=== PATIENT | male | born 1975 | race Caucasian/White ===

== ENCOUNTER 2024-03-02 10:43 | Outpatient (CLI) | payer MEDICARE, SELFPAY ==
--- NOTE | 2024-03-02 11:00 | US_ITS ---
Patient: ЮЛИЯ NAIR Facility:?[facility] Patient ID:?[id number] Site Patient ID:?[id number]. Site :?1975 Study:?US-Abdomen RENAL DOPPLER-03/02/2024 11:54:19 AM Ordering Physician:RUBEN LACEY M.D. Final Report: INDICATION: Resistant hypertension TECHNIQUE: Wayne scale, color and spectral doppler evaluation of the renal arteries. COMPARISON: None available FINDINGS: BILATERAL RENAL ARTERY DUPLEX ULTRASOUND ABDOMINAL AORTA: Peak systolic velocity = 101 cm/s. No aortic aneurysm. RIGHT KIDNEY: 12.2 cm in length. There is no hydronephrosis. Peak systolic velocity = 145 cm/second Renal artery to aortic peak systolic velocity ratio = 1.4 Resistive indices: 0.6 Renal vein = patent LEFT KIDNEY: 11.2 cm in length. There is no hydronephrosis. Peak systolic velocity = 138 cm/second Renal artery to aortic peak systolic velocity ratio = 1.4 Resistive indices: 0.6 Renal vein = patent IMPRESSION: No evidence of significant renal artery stenosis. Dictated by Cliff Doan MD @ 03/03/2024 12:27:43 PM Signed by:?Cliff Doan MD @03/03/2024 12:27:43 PM (Electronic Signature)
== END 2024-03-02 10:44 | disposition home or self-care (01) ==
LOC: US 10:48
PROVIDERS: PCP Family Medicine; Visit Provider Internal Medicine Nephrology
DX: I1A.0 Resistant hypertension (principal)
CPT/HCPCS: 76775; 93975

== ENCOUNTER 2024-11-04 11:17 | Emergency (ER) | payer MEDICARE, SELFPAY ==
--- OUTSIDE RECORDS SUMMARY | 2024-11-04 11:19 | XMS_ITS | Clinical Summary ---
Author Organization [employer] Address [place], [place] [address] Care Team Providers Care Injection Molding Machine Offbearer Name Role Phone Jeanne Brennan DO Primary Care Provider [phone] Jaleesa Wilder MD Unavailable [phone] Allergies Active Allergy Reactions Criticality Noted Date Comments Adhesive Intolerance-Can't Take 05/29/2019 Should only be using 3M silicone tape due to skin condition. Medications cholecalciferol (VITAMIN D) 1,000 unit tablet Take 1,000 Units by mouth once daily. Active naproxen (ALEVE) 220 mg tablet Take 1,100 mg by mouth every 8 hours if needed for Pain. Active ALPRAZolam (XANAX) 1 mg tablet Take 1 mg by mouth. 07/05/20 22 Active busPIRone (BUSPAR) 30 mg tablet Take 30 mg by mouth two times daily. 03/02/20 23 Active Vyvanse 40 mg capsule Take 40 mg by mouth once daily. 02/13/20 23 Active Vyvanse 10 mg capsule Take 10 mg by mouth once daily. Daily at 2 pm 02/09/20 23 Active omeprazole (PRILOSEC) 20 mg Delayed-Release capsuleIndications :Gastric reflux Take 1 Capsule (20 mg) by mouth once daily before a meal. 90 Capsule 2 02/26/20 24 Active hydrOXYzine HCL (ATARAX) 10 mg tablet Take 10-20 mg by mouth at bedtime. 08/05/20 24 Active lisinopriL (PRINIVIL; ZESTRIL) 20 mg tabletIndications: Resistant hypertension Take 1 Tablet (20 mg) by mouth two times daily. 180 Tablet 3 08/26/20 24 Active carvediloL (COREG) 25 mg tabletIndications: Resistant hypertension Take 1 Tablet (25 mg) by mouth two times daily with meals. 90 Tablet 3 08/26/20 24 Active triamterene-hydroc hlorothiazide, 37.5-25 mg, (DYAZIDE) 37.5-25 mg capsuleIndications :Resistant hypertension Take 1 Capsule by mouth once daily in the morning. 90 Capsule 3 08/26/20 24 Active aspirin chewable 81 mg chewable tabletIndications: Resistant hypertension Chew 1 Tablet (81 mg) by mouth once daily with a meal. 90 Tablet 3 08/26/20 24 Active albuterol HFA (PRO-AIR; VENTOLIN; PROVENTIL) 90 mcg/actuation inhalerIndications :SOB (shortness of breath) Inhale 1-2 Puffs by mouth every 4 hours if needed for Shortness Of Breath. 8.5 g 08/26/20 24 Active rosuvastatin (CRESTOR) 5 mg tabletIndications: Mixed hyperlipidemia Take 1 Tablet (5 mg) by mouth at bedtime. 90 Tablet 3 08/28/20 24 Active HYDROmorphone (Dilaudid) 2 mg tabletIndications: Complex regional pain syndrome type 1 of both upper extremities May take one tablet for severe pain bid prn 10 Tablet 09/07/20 24 Active cloNIDine HCL (CATAPRES) 0.1 mg tabletIndications: HTN (hypertension) Take 1 Tablet (0.1 mg) by mouth two times daily. 180 Tablet 3 09/07/20 24 Active rOPINIRole (REQUIP) 0.5 mg tabletIndications: RLS (restless legs syndrome) One po qhs x 1 week then if needed 2 po qhs 180 Tablet 3 09/07/20 24 Active onabotulinumtoxinA (Botox) 100 unit solrIndications:No nintractable headache, unspecified chronicity pattern, unspecified headache type Inject 200 units intramuscular one time for 1 dose. 2 Each 10/23/19 25 025 Active Problems Problem Noted Date Diagnosed Date Controlled substance agreement signed 12/17/2023 Overview (12/31/2023): [facility] Seema Alejandra .................... 12/31/2023 9:45 AM Controlled substance agreement signed 08/17/2021 Overview (08/17/2021): Signed at [facility] 07/25/2021 Rahel Williamson .................... 08/17/2021 9:41 AM Snoring 10/26/2015 Overview (10/26/2015): POLYSOMNOGRAM PSG type: full night baseline Date of study:10/06/2015; weight @ time of study: n/a Facility: [facility] Total Sleep Time: 301.5 Sleep Efficiency: 66.3% AHI: 0.2 RDI: 4.8 Myron O2%: 89 MD interp: pending CRPS 1, lower extremity 04/11/2015 CRPS (complex regional pain syndrome), upper jerome b 02/22/2015 Chronic pain syndrome 02/22/2015 BPH (benign prostatic hyperplasia) 02/01/2015 HTN (hypertension) 01/04/2015 Posttraumatic stress disorder 08/25/2009 Bipolar disorder, unspecified 08/03/2009 Resolved Problems Problem Noted Date Diagnosed Date Resolved Date Controlled substance agreement signed 07/05/2020 02/14/2022 Overview (07/05/2020): Dorota Hanson CMA 07/05/2020 11:26 AM Pyoderma gangrenosum 05/27/2019 019 Hypokalemia 05/26/2019 05/10/2021 Syncope and collapse 12/11/2014 016 Chest pain 12/11/2014 11/23/2015 Elevated BP 12/11/2014 12/14/2014 CRPS (complex regional pain syndrome), upper limb 07/05/2011 11/23/2015 Impingement syndrome of shoulder 08/10/2010 11/23/2015 Overview (08/10/2010): Right. Post traumatic work injury 07-02-2010 Weakness 12/14/2009 11/23/2015 Elevated blood pressure read ing without diagnosis of hypertension 12/04/2009 01/04/2015 Unspecified constipation 02/07/2008 Abdominal pain, right lower quadrant 02/03/2008 08/03/2009 Nausea with vomiting 02/03/2008 009 Intention tremor 11/23/2015 Dysphagia 02/28/2010 Encounters Date Type Department Care Team Description 11/04/2024 Nurse Triage [facility] [address] [place] [address] Jeanne Brennan DO Skin Problem 10/26/2024 11:15 AM CONFIGURATION MANAGEMENT ADMINISTRATOR - 10/26/2024 11:59 PM CONFIGURATION MANAGEMENT ADMINISTRATOR Hospital Encounter [facility] [address] [place] [address] Jaleesa Wilder MD 10/26/2024 11:15 AM CONFIGURATION MANAGEMENT ADMINISTRATOR Procedure Only [facility] [address] [place] [address] Jaleesa Wilder MD Procedure (Botox) 10/26/2024 Travel 09/07/2024 3:50 PM CONFIGURATION MANAGEMENT ADMINISTRATOR Office Visit [facility] [address] [place] [address] Jaleesa Wilder MD Follow Up 09/06/2024 Travel 08/26/2024 1:20 PM CONFIGURATION MANAGEMENT ADMINISTRATOR Office Visit [facility] [address] [place] [address] Jeanne Brennan DO Medicare ANNUAL (subsequent) Visit (49 year old male); Blood Pressure 08/26/2024 Refill [facility] [address] [place] [address] Jeanne Brennan DO Refill Request (Carvedilol) 08/26/2024 Travel 08/21/2024 Travel from Last 3 Months Immunizations Name Administration Dates Next Due DTP 08/18/1982, 9,1977,1977 ,1977 INFLUENZA, IIV3 PF (AGE >= 6 MO) 08/26/2024 Influenza, IIV3 (Age 6-35 mos) 07/08/2009 Influenza, IIV3 (Age >=3 years) 08/07/2010,02/02,02/03/2008 Influenza, IIV4 10/01/2023, 2,07/26/2021,06/29/2020 ,07/01/2019,07/23/2018 MMR 07/31/1978 Oral Polio Vaccine 08/18/1982, 9,1977,1977 ,1977 Td (Age >=7 Years) 12/11/2006,11/08/2000 Tdap 07/01/2019,07/08/2009 Family History Medical History Relation Name Comments Cancer-prostate Father dx'd age 45 Hypertension Father Stroke Maternal Grandfather Cancer-prostate Maternal Uncle 1 Heart Disease Maternal Uncle 2 dec in ?40 s Hypertension Mother Other Other 1 No family histo ry of colon cancer, ulcerative colitis, crohn's disease Heart Disease Other 2 maternal cousi ns dec in ?40s Heart Disease Paternal Grandfather dec du e to [place] age 72 Cancer-prostate Paternal Uncle some diagn osed in 30-40s Relation Name Status Comments Father Maternal Grandfather Maternal Uncle 1 Maternal Uncle 2 Mother Other 1 Other 2 Paternal Grandfather Paternal Grandmother Paternal Uncle Social History Tobacco Use Types Packs/Day Years Used Date Smoking Tobacco: Some Days Cigarettes 0.5 32 Started: 1992 Smokeless Tobacco: Never Tobacco Cessation:Ready to Q uit: Not Asked; Counseling Given: Not Answered Alcohol Use Standard Drinks/Week Comments Not Currently 0 (1 standard drink = 0.6 oz pur e alcohol) rarely PHQ-2 Answer Date Recorded PHQ-2 TOTAL SCORE 0 08/26/2024 Social Connections Answer Date Recorded Do you often feel lonely or isolated from those around you? 0 09/27/2023 Financial Resource Strain Answer Date R ecorded Difficulty of Paying Living Expenses 3 09/27/2023 Difficulty of Paying Living Expenses Not on file 09/27/2023 Food Insecurity Answer Date Recorded Do you worry your food will run out before you are able to buy more? 1 09/27/2023 Transportation Needs Answer Date Record ed Does lack of transportation keep you from medica l appointments? 1 09/27/2023 Does lack of transportation keep you from work, meetings or getting things that you need? 1 09/27/2023 Housing Stability Answer Date Recorded What is your housing situation today? 1 09/27/2023 Sex and Gender Information Value Date Recorded Sex Assigned at Not on file Legal Sex Male 7:00 AM CONFIGURATION MANAGEMENT ADMINISTRATOR Gender Identity Not on file Sexual Orientation Not on file Obstetrics History Last Filed Vital Signs Vital Sign Reading Time Taken Comments Blood Pressure 201/109 10/26/2024 12:10 PM CONFIGURATION MANAGEMENT ADMINISTRATOR Pulse 121 10/26/2024 12:10 PM CONFIGURATION MANAGEMENT ADMINISTRATOR Temperature 36.7 C (98 F) 10/26/2024 11:41 AM CONFIGURATION MANAGEMENT ADMINISTRATOR Respiratory Rate 16 10/26/2024 11:41 AM CONFIGURATION MANAGEMENT ADMINISTRATOR Oxygen Saturation 95% 10/26/2024 11:41 AM CONFIGURATION MANAGEMENT ADMINISTRATOR Inhaled Oxygen Concentration - - Weight 99.9 kg (220 lb 4.8 oz) 08/26/2024 1:34 P M CONFIGURATION MANAGEMENT ADMINISTRATOR Height 182.3 cm (5' 11.77) 08/26/2024 1:[address] Body Mass Index 30.07 08/26/2024 1:34 PM CONFIGURATION MANAGEMENT ADMINISTRATOR Plan of Treatment Health Maintenance Due Date Last Done Comments HIV for age 15-65 1992 Pneumococcal series for age 6-49 (1 of 2 - PCV) 1996 COVID-19 vaccine series ( season) 2024 BMI (ht and wt on same day) for age 18+ 08/26/2025 08/26/2024, 01/15/2024, 07/25/2022, Additional history exists Depression screening for age 12+ 08/26/2025 08/26/2024, 08/26/2024, 01/15/2024, Additional history exists Colonoscopy through age 75 01/30/202701/30, 01/30/2017, 02/19/2008 Tetanus booster 07/01/2029 07/01/2019, 10/0 10/2008, 07/08/2009, Additional history exists Lipids for age 45-75 08/26/2029 08/26/2024, 07/25/2022, 06/29/2020, Additional history exists Tdap Completed 07/01/2019, 07/08/2009 Hepatitis C screening for ag e 18-79 Completed 07/25/2022 Influenza for age 9-49 Completed , 10/01/2023, 07/25/2022, Additional history exists Procedures Procedure Name Priority Date/Time Associated Diagnosis Comments CHEMODENERVATION Routine 10/26/2024 11:3 4 AM CONFIGURATION MANAGEMENT ADMINISTRATOR Chronic migraine with aura, intractable, with status migrainosus HEMOGLOBIN Routine 08/26/2024 2:17 PM CONFIGURATION MANAGEMENT ADMINISTRATOR Rectal bleeding BASIC METABOLIC PANEL Routine 08/26/2024 2:17 PM CONFIGURATION MANAGEMENT ADMINISTRATOR Chronic kidney disease, stage II (mild) LIPID PANEL W REFLEX MEASURED LDL Routine 08/26/2024 2:17 PM CONFIGURATION MANAGEMENT ADMINISTRATOR Screening cholesterol level ANTI HCV Routine 07/25/2022 11:54 AM CDT Need for hepatitis C screening test COLONOSCOPY 01/30/2017 10:32 AM CDT from Last 3 Months or Most Recently Relevant to Health Maintenance Results * (ABNORMAL) LIPID PANEL W REFLEX MEASURED LDL (08/26/2024 2:17 PM CONFIGURATION MANAGEMENT ADMINISTRATOR) Pathologist [facility] CHOLESTEROL, TOTAL 214(H) <200 mg/dL [facility] HDL CHOLESTEROL 44 > OR = 40 mg/dL [facility] TRIGLYCERIDES 221(H) <150 mg/dL [facility] Comment: If a non-fasting specimen was collected, consider repeat triglyceride testing on a fasting specimen if clinically indicated. Cherelle et al. J. of Clin. Lipidol. 2015;9:129-169. LDL-CHOLESTEROL 134(H) mg/dL (calc) [facility] Comment: Reference range: <100 Desirable range <100 mg/dL for primary prevention; <70 mg/dL for patients with CHD or diabetic patients with > or = 2 CHD risk factors. LDL-C is now calculated using the Henry calculation, which is a validated novel method providing better accuracy than the Friedewald equation in the estimation of LDL-C. Carlito MAI et al. ELSI. 2013;310(19): 0424-3357 (http://education.CribFrog/faq/EGS398) CHOL/HDLC RATIO 4.9 <5.0 (calc) [facility] NON HDL CHOLESTEROL 170(H) <130 mg/dL (calc) [facility] Comment: For patients with diabetes plus 1 major ASCVD risk factor, treating to a non-HDL-C goal of <100 mg/dL (LDL-C of <70 mg/dL) is considered a therapeutic option. Blood BLOOD SPECIMEN / Unknown 08/26/2024 2:17 PM CONFIGURATION MANAGEMENT ADMINISTRATOR 08/26/2024 2:18 PM CONFIGURATION MANAGEMENT ADMINISTRATOR [employer] CHEMISTRY Final Result [facility] [address] [place] [address], [facility] [address] [place] [address] * (ABNORMAL) HEMOGLOBIN (08/26/2024 2:17 PM CONFIGURATION MANAGEMENT ADMINISTRATOR) HEMOGLOBIN 18.3(H) 13.2 - 17.1 g/dL [facility] Blood BLOOD SPECIMEN / Unknown 08/26/2024 2:17 PM CONFIGURATION MANAGEMENT ADMINISTRATOR 08/26/2024 2:18 PM CONFIGURATION MANAGEMENT ADMINISTRATOR [employer] Sameer HEMATOLOGY Final Result [facility] [address] [place] [address], [facility] [address] [place] [address] * (ABNORMAL) BASIC METABOLIC PANEL (08/26/2024 2:17 PM CONFIGURATION MANAGEMENT ADMINISTRATOR) GLUCOSE 101(H) 65 - 99 mg/dL [facility] Comment: Fasting reference interval For someone without known diabetes, a glucose value between 100 and 125 mg/dL is consistent with prediabetes and should be confirmed with a follow-up test. UREA NITROGEN (BUN) 7 7 - 25 mg/dL [facility] CREATININE 1.31(H) 0.60 - 1.29 mg/dL [facility] EGFR 68 > OR = 60 mL/min/1.7 3m2 [facility] BUN/CREATININE RATIO 5(L) 6 - 22 (calc) [facility] SODIUM 139 135 - 146 mmol/L [facility] POTASSIUM 5.3 3.5 - 5.3 mmol/L [facility] CHLORIDE 103 98 - 110 mmol/L [facility] CARBON DIOXIDE 29 20 - 32 mmol/L [facility] ELECTROLYTE BALANCE 7 7 - 17 mmol/L (calc) [facility] CALCIUM 10.5(H) 8.6 - 10.3 mg/dL [facility] Blood BLOOD SPECIMEN / Unknown 08/26/2024 2:17 PM CONFIGURATION MANAGEMENT ADMINISTRATOR 08/26/2024 2:18 PM CONFIGURATION MANAGEMENT ADMINISTRATOR Jeanne Brennan DO CHEMISTRY Final Result Performing Organization Address City/[facility]/ZIP Co de Phone Number [employer] [facility] [address] [place] [address], [facility] [address] [place] [phone] * ANTI HCV (07/25/2022 11:54 AM CDT) HEPATITIS C ANTIBODY Non-React miguel Non-React miguel 07/26/2022 3:40 PM CDT [facility] Comment:Antibodies to HCV no t detected; does not exclude the possibility of exposure to HCV. Blood BLOOD SPECIMEN / Unknown Venipuncture / Unknown 07/25/2022 11:54 AM CDT 07/25/2022 11:59 AM CDT Charlee UMAÑA SEND OUTS Final Resu lt [facility] [address] [place] [address], [place] * COLONOSCOPY (01/30/2017 10:32 AM CDT) 01/30/2017 10:3 2 AM CDT Narrative Transcriptions Carlito Carranza MD - 01/30/2017 11:44 AM CDT Patient Name: Nestor Can Procedure Date: 01/30/2017 Gender: Male Date of : 1975 Admit Type: Outpatient Procedure: Colonoscopy Proceduralist: Carlito Carranza MD , Kristine Villagran (Nurse) Referring MD: Charlee Salmeron Indications/Pre-Op Diagnosis: This is the patient's first colonoscopy, Chronic diarrhea, Hematochezia Medications: Fentanyl 200 micrograms IV, Midazolam 4 mgIV, The level of sedation administered wasmoderate Procedure Description: The patient had risks, benefits and alternatives explained to andgave informed consent. The patient had a stable cardiopulmonary status and judged an adequate candidate for conscious sedation. The [id number] was passed through the anus and advanced tothe terminal ileum. The colonoscopy was performed without difficulty. The patient tolerated the procedure well. The quality of the bowel preparation was excellent. The terminal ileum, ileocecal valve, appendiceal orifice, and rectum were photographed. Complications: No immediate complications. Estimated Blood Loss & Specimen: Estimated blood loss: none. Specimen collected - Yes and sent to Laboratory Findings: The perianal and digital rectal examinations were normal. Non-bleeding internal hemorrhoids were found during retroflexion. The hemorrhoids were small. The exam was otherwise without abnormality on direct and retroflexion views. The terminal ileum appeared normal. Biopsies for histology were taken with a cold forceps from the entire colon for evaluation of microscopic colitis. Impressions/Post-Op Diagnosis: - Non-bleeding internal hemorrhoids. - The examination was otherwise normal on direct and retroflexionviews. - The examined portion of the ileum was normal. - Biopsies were taken with a cold forceps from the entire colon for evaluation of microscopic colitis. Recommendation: - Patient has a contact number available for emergencies. The signsand symptoms of potential delayed complications were discussed with the patient. Return to normal activities tomorrow. Written discharge instructions were provided to the patient. - Resume previous diet. - Continue present medications. - Await pathology results. - Repeat colonoscopy is recommended. The colonoscopy date will be determined after pathology results from today's exam become available for review. - Perform an upper GI endoscopy if biopsies of the colon are normaland diarrhea persists. - Refer to a surgeon if rectal bleeding persist. Moderate Sedation: Moderate (conscious) sedation was administered by the endoscopy nurse and supervised by the endoscopist. The following parameters were monitored: oxygen saturation, heart rate, respiratory rate, blood pressure, adequacy of pulmonary ventilation and reponse to care. [facility] and nursing notes for moderate sedation details. Total physician intraservice time was 29 minutes. Carlito Carranza MD 01/30/2017 11:43:48 AM This report has been signed electronically. Note Initiated On: 01/30/2017 10:32 AM Procedure Code(s): --- Professional --- 52508, Colonoscopy, flexible; with biopsy, single or multiple Diagnosis Code(s): --- Professional --- K64.8, Other hemorrhoids K52.9, Noninfective gastroenteritis and colitis, unspecified K92.1, Melena (includes Hematochezia) CPT copyright 2016 [employer]. All rights reserved. The codes documented in this report are preliminary and upon resident buyer reviewmay be revised to meet current compliance requirements. Scope In: 11:09:57 AM Scope Withdrawal Time 0 hours 16 minutes 1 second Scope Out: 11:35:59 AM Carlito Carranza MD PROCEDURE ORD Final Res ult from Last 3 Months or Most Recently Relevant to Health Maintenance Insurance MEDICARE PART A HB ONLY [facility] MR/MSHO ES[facility] MEDICARE PB ONLY * Guarantor: SYBIL PUGHREEN Account Type Relation to Patient Date of Phone Billing Address [employer] [address]5 (Work) ATTN AP [address] [address] [place] [address] Advance Directives Documents on File Type Date Recorded Patient [employer] anation Healthcare Directive 12/13/2009 * Full Code (Latest Code Status on File) Date Activated Date Inactivated Comments 07/26/2020 6:27 AM 07/26/2020 3:21 PM Question Answer Comments Code Status Discussion: Not Discussed * Full Code Date Activated Date Inactivated Comments 05/27/2019 12:50 AM 05/29/2019 4:39 PM Question Answer Comments Code Status Discussion: Not Discussed * Full Code Date Activated Date Inactivated Comments 05/18/2019 10:22 AM 05/22/2019 4:01 PM * Full Code Date Activated Date Inactivated Comments 07/22/2018 11:26 AM 07/25/2018 4:29 PM * Full Code Date Activated Date Inactivated Comments 12/11/2014 6:22 PM 12/12/2014 12:39 PM Care Teams Injection Molding Machine Offbearer Relationship Specialty Start Date End Date Jeanne Brennan DO [address] [place] [address] PCP - General Family Practice 03/19/23 Jaleesa Wilder MD [address] [facility] [address] [place] [address] Pain Management Pain Medicine - Anesthesiology 09/08/24
[2024-11-04 11:31] VITALS: BP 124/88; PULSE 94; RESP 18; TEMP 36.9; O2SAT 99; BMI 29.7
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
--- OUTSIDE RECORDS SUMMARY | 2024-11-04 12:43 | XMS_ITS | Clinical Summary ---
Author Organization [employer] [facility] [employer] [facility] Address [place], [place] [address] Care Team Providers Care Jacquard Plate Maker Name Role Phone Jeanne Brennan DO Primary Care Provider [phone] Jaleesa Wilder MD Unavailable [phone] Allergies Active Allergy Reactions Criticality Noted Date [...] Controlled substance agreement signed 12/17/2023 Overview (12/31/2023): [facility] Seema Alejandra .................... 12/31/2023 9:45 AM Controlled substance agreement signed 08/17/2021 Overview (08/17/2021): Signed at [facility] 07/25/2021 Rahel Williamson .................... 08/17/2021 9:41 AM Snoring 10/26/2015 Overview (10/26/2015): POLYSOMNOGRAM PSG type: full night baseline Date of study:10/06/2015; weight @ time of study: n/a Facility: [facility] Total Sleep Time: 301.5 Sleep Efficiency: 66.3% [...] Department Care Team Description 11/04/2024 Nurse Triage [facility] [address] [place] [address] Jeanne Brennan DO Skin Problem 10/26/2024 11:15 AM CHIP CRUSHER OPERATOR - 10/26/2024 11:59 PM CHIP CRUSHER OPERATOR Hospital Encounter [facility] [address] [place] [address] Jaleesa Wilder MD 10/26/2024 11:15 AM CHIP CRUSHER OPERATOR Procedure Only [facility] [address] [place] [address] Jaleesa Wilder MD Procedure (Botox) 10/26/2024 Travel 09/07/2024 3:50 PM CHIP CRUSHER OPERATOR Office Visit [facility] [address] [place] [address] Jaleesa Wilder MD Follow Up 09/06/2024 Travel 08/26/2024 1:20 PM CHIP CRUSHER OPERATOR Office Visit [facility] [address] [place] [address] Jeanne Brennan DO Medicare ANNUAL (subsequent) Visit (49 year old male); Blood Pressure 08/26/2024 Refill [facility] [address] [place] [address] Jeanne Brennan DO Refill Request (Carvedilol) 08/26/2024 [...] Disease Paternal Grandfather dec du e to [place] age 72 Cancer-prostate Paternal Uncle some diagn [...] on file Legal Sex Male 7:00 AM CHIP CRUSHER OPERATOR Gender Identity Not on file Sexual Orientation Not on file Obstetrics History Last Filed Vital Signs Vital Sign Reading Time Taken Comments Blood Pressure 201/109 10/26/2024 12:10 PM CHIP CRUSHER OPERATOR Pulse 121 10/26/2024 12:10 PM CHIP CRUSHER OPERATOR Temperature 36.7 C (98 F) 10/26/2024 11:41 AM CHIP CRUSHER OPERATOR Respiratory Rate 16 10/26/2024 11:41 AM CHIP CRUSHER OPERATOR Oxygen Saturation 95% 10/26/2024 11:41 AM CHIP CRUSHER OPERATOR Inhaled Oxygen Concentration - - Weight 99.9 kg (220 lb 4.8 oz) 08/26/2024 1:34 P M CHIP CRUSHER OPERATOR Height 182.3 cm (5' 11.77) 08/26/2024 1:[address] Body Mass Index 30.07 08/26/2024 1:34 PM CHIP CRUSHER OPERATOR Plan of Treatment Health Maintenance Due Date [...] Comments CHEMODENERVATION Routine 10/26/2024 11:3 4 AM CHIP CRUSHER OPERATOR Chronic migraine with aura, intractable, with status migrainosus HEMOGLOBIN Routine 08/26/2024 2:17 PM CHIP CRUSHER OPERATOR Rectal bleeding BASIC METABOLIC PANEL Routine 08/26/2024 2:17 PM CHIP CRUSHER OPERATOR Chronic kidney disease, stage II (mild) LIPID PANEL W REFLEX MEASURED LDL Routine 08/26/2024 2:17 PM CHIP CRUSHER OPERATOR Screening cholesterol level ANTI HCV Routine 07/25/2022 11:54 AM CDT Need for hepatitis C screening test COLONOSCOPY 01/30/2017 10:32 AM CDT from Last 3 Months or Most Recently Relevant to Health Maintenance Results * (ABNORMAL) LIPID PANEL W REFLEX MEASURED LDL (08/26/2024 2:17 PM CHIP CRUSHER OPERATOR) Pathologist [facility] CHOLESTEROL, TOTAL 214(H) <200 mg/dL [facility] HDL CHOLESTEROL 44 > OR = 40 mg/dL [facility] TRIGLYCERIDES 221(H) <150 mg/dL [facility] Comment: If a non-fasting specimen was collected, consider repeat triglyceride testing on a fasting specimen if clinically indicated. Cherelle et al. J. of Clin. Lipidol. 2015;9:129-169. LDL-CHOLESTEROL 134(H) mg/dL (calc) [facility] Comment: Reference range: <100 Desirable range <100 mg/dL for primary prevention; <70 mg/dL for patients with CHD or diabetic patients with > or = 2 CHD risk factors. LDL-C is now calculated using the Henry calculation, which is a validated novel method providing better accuracy than the Friedewald equation in the estimation of LDL-C. Carlito MAI et al. ELSI. 2013;310(19): 1474-1301 (http://education.Matchmaker Videos/faq/YYJ873) CHOL/HDLC RATIO 4.9 <5.0 (calc) [facility] NON HDL CHOLESTEROL 170(H) <130 mg/dL (calc) [facility] Comment: For patients with diabetes plus 1 major ASCVD risk factor, treating to a non-HDL-C goal of <100 mg/dL (LDL-C of <70 mg/dL) is considered a therapeutic option. Blood BLOOD SPECIMEN / Unknown 08/26/2024 2:17 PM CHIP CRUSHER OPERATOR 08/26/2024 2:18 PM CHIP CRUSHER OPERATOR Sodbuster Anu CHEMISTRY Final Result [facility] [address] [place] [address], [facility] [address] [place] [address] * (ABNORMAL) HEMOGLOBIN (08/26/2024 2:17 PM CHIP CRUSHER OPERATOR) HEMOGLOBIN 18.3(H) 13.2 - 17.1 g/dL [facility] Blood BLOOD SPECIMEN / Unknown 08/26/2024 2:17 PM CHIP CRUSHER OPERATOR 08/26/2024 2:18 PM CHIP CRUSHER OPERATOR Sodbuster Sameer HEMATOLOGY Final Result [facility] [address] [place] [address], [facility] [address] [place] [address] * (ABNORMAL) BASIC METABOLIC PANEL (08/26/2024 2:17 PM CHIP CRUSHER OPERATOR) GLUCOSE 101(H) 65 - 99 mg/dL [facility] Comment: Fasting reference interval For [...] BLOOD SPECIMEN / Unknown 08/26/2024 2:17 PM CHIP CRUSHER OPERATOR 08/26/2024 2:18 PM CHIP CRUSHER OPERATOR Jeanne Brennan DO CHEMISTRY Final Result Performing Organization Address City/[facility]/ZIP Co de Phone Number [facility] [address] [place] [address], [facility] [address] [place] [phone] * ANTI HCV (07/25/2022 11:54 AM CDT) HEPATITIS C ANTIBODY Non-React miguel Non-React miguel 07/26/2022 3:40 PM CDT [facility] Comment:Antibodies to HCV no t detected; does not exclude the possibility of exposure to HCV. Blood BLOOD SPECIMEN / Unknown Venipuncture / Unknown 07/25/2022 11:54 AM CDT 07/25/2022 11:59 AM CDT Charlee UMAÑA SEND OUTS Final Resu lt [facility] [address] [place] [address], [place] * COLONOSCOPY (01/30/2017 10:32 AM CDT) 01/30/2017 10:3 2 AM CDT Narrative Transcriptions Carlito Carranza MD - 01/30/2017 11:44 AM CDT Patient Name: Nestor aCn Procedure Date: 01/30/2017 Gender: Male Date of [...] adequate candidate for conscious sedation. The [id number] was passed through the anus and advanced [...] reponse to care. [facility] and nursing notes for moderate sedation details. Total physician intraservice time was 29 minutes. Carlito Carranza MD 01/30/2017 11:43:48 AM This report has been signed electronically. Note Initiated On: 01/30/2017 10:32 AM Procedure Code(s): --- Professional --- 48720, Colonoscopy, flexible; with biopsy, single or multiple Diagnosis Code(s): --- Professional --- K64.8, Other hemorrhoids K52.9, Noninfective gastroenteritis and colitis, unspecified K92.1, Melena (includes Hematochezia) CPT copyright 2016 [employer]. All rights reserved. The codes documented in this report are preliminary and upon plant operations engineer reviewmay be revised to meet current compliance requirements. Scope In: 11:09:57 AM Scope Withdrawal Time 0 hours 16 minutes 1 second Scope Out: 11:35:59 AM Carlito Carranza MD PROCEDURE ORD Final Res ult from Last 3 Months or Most Recently Relevant to Health Maintenance Insurance MEDICARE PART A HB ONLY [facility] MR/MSHO ES[place] MEDICARE PB ONLY * Guarantor: SYBIL PUGHREEN Account Type Relation to Patient Date of Phone Billing Address [employer] [facility] [address] (Work) ATTN AP [address] [address] [place] [address] Advance Directives Documents on File Type Date Recorded Patient Forensic Science Examiner Expl anation Healthcare Directive 12/13/2009 * Full [...] 6:22 PM 12/12/2014 12:39 PM Care Teams Jacquard Plate Maker Relationship Specialty Start Date End Date Jeanne Brennan DO [address] [place] [address] PCP - General Family Practice 03/19/23 Jaleesa Wilder MD [address] [facility] [address] [place] [address] Pain Management Pain Medicine - Anesthesiology 09/08/24
== END 2024-11-04 13:15 | disposition home or self-care (01) ==
PROVIDERS: Emergency Provider Emergency Medicine; PCP Family Medicine
DX: T33.522A Superficial frostbite of left hand, initial encounter (principal)
CPT/HCPCS: 99282; 99283